=== PATIENT | female | born 1995 ===

== ENCOUNTER 2017-07-20 20:37 | Emergency (ER) | payer OTHER ==
[~2017-07-20] VITALS: Ht 162.6 cm; Wt 60.1 kg
[2017-07-20 20:39] VITALS: TEMP 36.7; Ht 162.6 cm; Wt 60.1 kg
--- NOTE | 2017-07-20 20:50 | EMERGENCY ROOM VISIT NOTE ---
ED Visit Note First contact with patient: 20:42 CHIEF COMPLAINT: Ankle pain HISTORY OF PRESENT ILLNESS: This female patient presents to the emergency department ambulatory after sustaining an injury to the right ankle with a twisting, inversion motion when she twisted it while playing baseball earlier today. Complains of mild swelling and pain. The patient complains of pain along the outside of the ankle. The patient does not have pain of the foot. The patient rates the pain as soreness and 5/10. There was no audible pop. The patient is able to bear weight on the foot. Constant pain, worse with movement, weight bearing, and the dependent position. No knee pain, the patient is able to move their toes. No numbness or weakness of the foot, no laceration. The patient has had a previous injury to this ankle, sprain. The patient has taken nothing for the pain. The patient denies any other injury. REVIEW OF SYSTEMS: A 6 system review of systems was completed with positives and pertinent negatives listed in the HPI. ALLERGIES: No known drug allergies MEDICATIONS: None PMH: none SOCIAL HISTORY: The patient is a student PHYSICAL EXAM: Vital Signs: Reviewed Nurse's notes, vital signs stable. GENERAL : This is a 21-year-old female, no acute distress, but appears in pain, well- developed, well-nourished. MENTAL STATUS: Alert, oriented to person place and time, and cooperative. MUSCULOSKELETAL: The right ankle is swollen and tender over the lateral malleolus, but the skin is intact and there is no ligamentous instability. There is no fifth metatarsal tenderness. There is no tenderness over the rest of the foot. There is no calf or tibia/fibular tenderness. There is no visual deformity. The foot and toes are warm and well-perfused. Dorsalis pedis pulse 2+. Sensation to pain and light touch is intact. Capillary refill less than 2 seconds. EMERGENCY DEPARTMENT COURSE: I examined the patient. X-rays of the right ankle were reviewed by myself and read by radiology and reveal no fracture or dislocation. A gel splint was applied to the ankle under my direction and the position was satisfactory. Neurovascular status was rechecked and intact. The patient was instructed on the use of crutches. The patient was discharged home in good condition. RIGHT ANKLE MIN 3 VIEWS ROUTINE CLINICAL HISTORY: 21 years-old Female presenting with right ankle pain Right. TECHNIQUE: Frontal, mortise, and lateral views of the right ankle were obtained. COMPARISON: None. FINDINGS: Ankle mortise intact. No acute fracture or malalignment. No significant degenerative change. Regional soft tissues within normal limits. IMPRESSION: No acute osseous injury of the right ankle. Current/Historical Medications No Active Prescriptions or Reported Meds Allergies Coded Allergies: No Known Allergies (Unverified , 07/20/17) Vital Signs Date Time Temp Pulse Resp B/P (MAP) Pulse Ox O2 Delivery O2 Flow Rate FiO2 07/20/17 22:22 70 18 128/76 97 07/20/17 20:39 36.7 75 16 123/75 100 Room Air Departure Information Impression Primary Impression: Right ankle sprain Dispostion Home / Self-Care Condition GOOD Prescriptions No Active Prescriptions or Reported Meds Referrals No Doctor, Assigned (PCP) Piotr Yarbrough M.D. Patient Instructions Ankle Sprain, [facility] Additional Instructions Ice and elevate ankle for swelling and pain. Crutches with weight bearing as tolerated. Wear the splint 7-14 days or until pain subsides. Ibuprofen 600 mg every 6 hrs for pain. If ankle has not improved within 5-7 days, follow-up family doctor or orthopedic surgeon for further evaluation and management. Problem Qualifiers Primary Impression: Right ankle sprain Encounter type: initial encounter Involved ligament of ankle: other ligament Qualified Codes: S93.491A - Sprain of other ligament of right ankle, initial encounter
--- NOTE | 2017-07-20 21:45 | DIAGNOSTIC IMAGING REPORT ---
RIGHT ANKLE MIN 3 VIEWS ROUTINE CLINICAL HISTORY: 21 years-old Female presenting with right ankle pain Right. TECHNIQUE: Frontal, mortise, and lateral views of the right ankle were obtained. COMPARISON: None. FINDINGS: Ankle mortise intact. No acute fracture or malalignment. No significant degenerative change. Regional soft tissues within normal limits. IMPRESSION: No acute osseous injury of the right ankle. Electronically signed by: Piotr Stringer M.D. 07/20/2017 9:44 PM Dictated Date/Time: 07/20/2017 9:43 PM
[2017-07-20 22:22] VITALS: BP 128/76; PULSE 70; O2SAT 97
== END 2017-07-20 22:26 | disposition home or self-care (01) ==
LOC: C.EDB 20:38 → C.EDD 22:26
DX: S93.401A Sprain of unspecified ligament of right ankle, initial encounter (principal); X58.XXXA Exposure to other specified factors, initial encounter; Y93.64 Activity, baseball

== ENCOUNTER 2017-08-18 18:49 | Emergency (ER) | payer OTHER ==
[~2017-08-18] VITALS: Ht 162.6 cm; Wt 48.4 kg
[2017-08-18 18:52] VITALS: TEMP 36.9; Ht 162.6 cm; Wt 48.4 kg
--- NOTE | 2017-08-18 19:33 | DIAGNOSTIC IMAGING REPORT ---
R FINGER(S) MIN 2 VIEWS ROUTINE CLINICAL HISTORY: right 4th finger injury, DIP trauma. Pain. COMPARISON: None. DISCUSSION: Transverse fracture distal aspect middle phalanx right fourth finger. Mild soft tissue edema. No evidence of dislocation. IMPRESSION: Transverse fracture distal aspect middle phalanx fourth finger. No evidence of dislocation. The above report was generated using voice recognition software. It may contain grammatical, syntax or spelling errors. Electronically signed by: Leonardo Jones M.D. 08/18/2017 7:32 PM Dictated Date/Time: 08/18/2017 7:31 PM
--- NOTE | 2017-08-18 19:46 | EMERGENCY ROOM VISIT NOTE ---
ED Visit Note First contact with patient: 19:09 CHIEF COMPLAINT: Finger injury HISTORY OF PRESENT ILLNESS: This 21-year-old female patient presents to the emergency department approximately one hour after injuring the right fourth finger when she fell from a swing. The patient states she was sitting on a swing, when the metal chain Roeck. The patient states she believes she caught her right fourth finger in the chain, and states she also may have landed on it on the ground. She immediately noticed bruising and deformity of the distal aspect of the right fourth finger. The patient rates the pain as sharp and 6/ 10. The patient has limited range of motion of the finger at the DIP. No numbness or tingling. No lacerations. No other injuries. The patient has not had previous fracture to this finger. The patient has taken nothing for the pain. REVIEW OF SYSTEMS: A 6 system review of systems was completed with positives and pertinent negatives in the HPI. ALLERGIES: None MEDICATIONS: None PMH: None SOCIAL HISTORY: The patient lives locally alone. She denies drug, alcohol, tobacco use. PHYSICAL EXAM: Vital Signs: Reviewed Nurse's notes, vital signs stable. GENERAL : Is a 21-year-old female, in no acute distress, but appears to be in pain, well -developed, well-nourished. MUSCULOSKELETAL: There is a mild deformity of the right fourth finger with a bend at the DIP medially. The patient has full flexion and extension of the right 4th finger, with the exception of at the DIP - she is unable to flex at this joint. Strength to resistance is 3/5. The DIP joint is maximally tender. There is no ligamentous instability. There is no laceration. Capillary refill less than 2 seconds. No tenderness of the remaining fingers or hand. Full range of motion of the wrist. NEURO: Alert and oriented to person, place, and time. Normal sensation to light and sharp touch. RADIOLOGY: R FINGER(S) MIN 2 VIEWS ROUTINE CLINICAL HISTORY: right 4th finger injury, DIP trauma. Pain. COMPARISON: None. DISCUSSION: Transverse fracture distal aspect middle phalanx right fourth finger. Mild soft tissue edema. No evidence of dislocation. IMPRESSION: Transverse fracture distal aspect middle phalanx fourth finger. No evidence of dislocation. EMERGENCY DEPARTMENT COURSE: I examined the patient. An x-ray of the right fourth finger was reviewed by myself and radiologist and showed a transverse fracture of the distal aspect of the middle phalanx of the fourth finger. The finger was immobilized by a metal finger splint under my direction and the position was satisfactory. Neurovascular status rechecked and intact. The patient was discharged home in good condition. Patient was found to have normal blood pressure on screening and does not require follow-up. I attest that I have personally reviewed the patient's current medication list. DIFFERENTIAL DIAGNOSIS: Fracture, contusion, dislocation, and others DIAGNOSIS: Transverse fracture middle phalanx fourth finger DISCHARGE INSTRUCTIONS: ORTHOPEDIC INSTRUCTIONS: Ibuprofen(Motrin, Advil) may be used for fever or pain. Use 600mg every six hours as needed. Take with food. Avoid using more than 2400mg in a 24 hour period. Do not use 2400mg per day for more than three consecutive days without physician direction. Prolonged inappropriate use can lead to stomach upset or ulcers. (AND/OR) Acetaminophen(Tylenol) may be used for fever or pain. Use 1000mg every six hours as needed. Avoid using more than 3000mg in a 24 hour period. Ice compresses for 20 minutes at a time four times daily for 2-3 days. Rest and elevate your injury. Keep the finger in the splint until you see orthopedics. Do not get the splint wet. If your splint feels excessively tight, you have worsening pain, develop numbness or tingling, or your digits appear blue, loosen the shaun wrap. Then reapply the shaun wrap gently without removing the splint. If your symptoms are not quickly relieved return to the ER for re- evaluation. Return to the ER immediately for any numbness, tingling, severe pain, extreme swelling in the extremity or as needed. Call [facility], [phone], tomorrow, to arrange follow up for your injury in 3-5 days. Follow-up with your primary care physician in 2 to 3 days for a recheck of your current condition. Current/Historical Medications No Active Prescriptions or Reported Meds Allergies Coded Allergies: No Known Allergies (Unverified , 07/20/17) Vital Signs Date Time Temp Pulse Resp B/P (MAP) Pulse Ox O2 Delivery O2 Flow Rate FiO2 08/18/17 19:58 70 18 105/70 98 Room Air 08/18/17 18:52 36.9 80 18 118/69 98 Room Air Departure Information Impression Primary Impression: Finger fracture, right Dispostion Home / Self-Care Condition GOOD Prescriptions No Active Prescriptions or Reported Meds Referrals No Doctor, Assigned (PCP) Piotr Vaughn MD Patient Instructions ED Fx Finger Closed, [facility] Additional Instructions ORTHOPEDIC INSTRUCTIONS: Ibuprofen(Motrin, Advil) may be used for fever or pain. Use 600mg every six hours as needed. Take with food. Avoid using more than 2400mg in a 24 hour period. Do not use 2400mg per day for more than three consecutive days without physician direction. Prolonged inappropriate use can lead to stomach upset or ulcers. (AND/OR) Acetaminophen(Tylenol) may be used for fever or pain. Use 1000mg every six hours as needed. Avoid using more than 3000mg in a 24 hour period. Ice compresses for 20 minutes at a time four times daily for 2-3 days. Rest and elevate your injury. Keep the finger in the splint until you see orthopedics. Do not get the splint wet. If your splint feels excessively tight, you have worsening pain, develop numbness or tingling, or your digits appear blue, loosen the shaun wrap. Then reapply the shaun wrap gently without removing the splint. If your symptoms are not quickly relieved return to the ER for re- evaluation. Return to the ER immediately for any numbness, tingling, severe pain, extreme swelling in the extremity or as needed. Call [facility], [phone], tomorrow, to arrange follow up for your injury in 3-5 days. Follow-up with your primary care physician in 2 to 3 days for a recheck of your current condition. Problem Qualifiers Primary Impression: Finger fracture, right Encounter type: initial encounter Finger: ring finger Fracture type: closed Phalanx: middle Fracture alignment: nondisplaced Qualified Codes: S62.654A - Nondisplaced fracture of medial phalanx of right ring finger, initial encounter for closed fracture
[2017-08-18 19:58] VITALS: BP 105/70; PULSE 70; O2SAT 98
== END 2017-08-18 20:00 | disposition home or self-care (01) ==
LOC: C.EDB 18:50 → C.EDD 20:00
DX: S62.654A Nondisplaced fracture of middle phalanx of right ring finger, initial encounter for closed fracture (principal); W23.0XXA Caught, crushed, jammed, or pinched between moving objects, initial encounter; Y92.89 Other specified places as the place of occurrence of the external cause